=== PATIENT | female | born 1985 | race Caucasian/White ===

== ENCOUNTER 2020-05-17 11:11 | Inpatient (IN) | payer MEDICAID ==
[~2020-05-17] VITALS: Ht 172.7 cm; Wt 74.1 kg
[2020-05-17] MEDS ORDERED: SODIUM CHLORIDE 0.9% 1,000 ML IV ONE (12:15)
[2020-05-17] MEDS ORDERED: PROMETHAZINE HCL 25 MG/ML 1ML IV ONE (12:15)
[2020-05-17 12:27] LABS: Basophils # (auto) 0 10 ^3/uL (0-0.2); Basophils % (auto) 0.1 % (0.0-2.0); Eosinophils # (auto) 0 10 ^3/uL (0-0.8); Hematocrit 39.1 % (36.0-46.0); Hemoglobin 13.3 g/dL (12.2-16.2); Lymphocytes % (auto) 18.2 % (10.0-50.0); Mean Corpuscular Hemoglobin 30.3 pg (28.0-32.0); Mean Corpuscular Volume 89.1 fL (80.0-100.0); Monocytes # (auto) 0.6 10 ^3/uL (0-1.3); Monocytes % (auto) 5.8 % (0.0-12.0); Neutrophils # (auto) 8.2 10 ^3/uL (1.6-8.6); Neutrophils % (auto) 75.9 % (37.0-80.0); Nucleated Red Blood Cells % 0.1 %; Platelet Count (auto) 290 10^3/uL (140-450); Red Blood Cells 4.39 10^6/uL (4.0-5.20); Red Cell Distribution Width 14.1 % (11.8-14.3); White Blood Cell 10.8 10^3/uL (4.4-10.8)
[2020-05-17 12:45] LABS: Calcium 10.2 mg/dL (8.5-10.1); Potassium 3.3 mmol/L (3.5-5.1)
[2020-05-17 12:48] LABS: Albumin 4.1 g/dL (3.4-5.0); BUN/Creatinine Ratio 18.6
[2020-05-17 12:53] LABS: Bilirubin, Total 0.8 mg/dL (0.2-1.0); Total Protein 8.7 g/dL (6.4-8.2)
[2020-05-17] MEDS ORDERED: KETOROLAC TROMETH 30 MG/ML 1ML VIAL IV ONE (14:30)
[2020-05-17] MEDS: PANTOPRAZOLE 40 MG/10 ML VIAL INJ IV SCH (15:20)
[2020-05-17] MEDS: SODIUM CHLORIDE 0.9% 1,000 ML IV SCH ×2 (15:20→21:29)
[2020-05-17] MEDS: cefTRIAXone 1GM/50ML D5W 50 ML IV SCH (15:21)
[2020-05-17] MEDS: ONDANSETRON HCL 4 MG/2 ML VIAL IV PRN ×2 (15:50→23:14)
[2020-05-17] MEDS: metroNIDAZOLE 500MG/100ML 100 ML IV SCH ×2 (15:51→22:59)
[2020-05-17 19:44] LABS: Urine Bacteria FEW /hpf (None Seen); Urine Blood Negative /uL (Negative); Urine Mucus FEW (None Seen); Urine Specific Gravity 1.025 (1.001-1.035); Urine WBC 4 /hpf (0 - 5)
[2020-05-17 21:30] VITALS: BP 114/71
[2020-05-17 22:20] VITALS: BP 114/71
[2020-05-17] MEDS: MORPHINE SULF INJ 2 MG/ML SYRINGE 1ML IV PRN (23:14)
[2020-05-18] MEDS ORDERED: GABA100C9 PO (01:16)
[2020-05-18] MEDS ORDERED: CYCL7.5T45 PO (01:16)
[2020-05-18] MEDS: SODIUM CHLORIDE 0.9% 1,000 ML IV SCH ×3 (03:21→17:25)
[2020-05-18 05:12] VITALS: BP 133/86
[2020-05-18 06:38] LABS: Potassium 3.3 mmol/L (3.5-5.1)
[2020-05-18 06:43] LABS: BUN/Creatinine Ratio 23.4
[2020-05-18] MEDS: metroNIDAZOLE 500MG/100ML 100 ML IV SCH ×3 (06:46→22:57)
[2020-05-18] MEDS: ONDANSETRON HCL 4 MG/2 ML VIAL IV PRN (06:58)
[2020-05-18] MEDS: PANTOPRAZOLE 40 MG/10 ML VIAL INJ IV SCH (07:31)
[2020-05-18 08:34] VITALS: BP 117/79
[2020-05-18] MEDS: cefTRIAXone 1GM/50ML D5W 50 ML IV SCH (09:16)
[2020-05-18 12:30] LABS: Amphetamine Screen, Urine NEGATIVE (NEGATIVE); Barbiturate Scree,Urine NEGATIVE (NEGATIVE); Benzodiazephine Screen, Urine NEGATIVE (NEGATIVE); Cannabinoid Screen, Urine POSITIVE (NEGATIVE); Cocaine Screen, Urine NEGATIVE (NEGATIVE); Opiate Scree,Urine NEGATIVE (NEGATIVE); Phencyclidine Screen, Urine NEGATIVE (NEGATIVE)
[2020-05-18 12:44] VITALS: BP 125/72
[2020-05-18] MEDS ORDERED: DEXTROSE (50%) 50ML SYRG IV PRN (14:30)
[2020-05-18] MEDS: ACCU-CHEK COMFORT CURVE STRIP VI SCH ×2 (16:54→22:00)
[2020-05-18] MEDS: InsuLIN REG 1unit/0.01ml Soln (100units/ml) SC SCH ×2 (16:55→22:00)
[2020-05-18 16:58] VITALS: BP 127/82
[2020-05-18 22:00] VITALS: BP 147/83
[2020-05-19] MEDS: SODIUM CHLORIDE 0.9% 1,000 ML IV SCH ×3 (01:38→13:25)
[2020-05-19] MEDS: ONDANSETRON HCL 4 MG/2 ML VIAL IV PRN (01:39)
[2020-05-19] MEDS: MORPHINE SULF INJ 2 MG/ML SYRINGE 1ML IV PRN (01:39)
[2020-05-19 05:00] VITALS: BP 122/77
[2020-05-19] MEDS: InsuLIN REG 1unit/0.01ml Soln (100units/ml) SC SCH ×2 (06:48→11:14)
[2020-05-19] MEDS: metroNIDAZOLE 500MG/100ML 100 ML IV SCH ×2 (06:49→15:05)
[2020-05-19] MEDS: ACCU-CHEK COMFORT CURVE STRIP VI SCH ×2 (06:49→11:13)
[2020-05-19 08:41] VITALS: BP 126/73
[2020-05-19] MEDS: cefTRIAXone 1GM/50ML D5W 50 ML IV SCH (08:45)
[2020-05-19] MEDS: PANTOPRAZOLE 40 MG/10 ML VIAL INJ IV SCH (11:13)
[2020-05-19 12:48] VITALS: BP 129/85
[2020-05-19 13:23] VITALS: BP 129/85
== END 2020-05-19 14:50 | disposition home or self-care (01) | DRG 249 ==
LOC: ER 11:11 → OVERFLOW 14:44 → EAST 20:51
PROVIDERS: ADMIT Nurse Practitioner Acute Care; ATTEND Family Medicine
DX: K52.9 Noninfective gastroenteritis and colitis, unspecified (principal); N17.0 Acute kidney failure with tubular necrosis; E11.65 Type 2 diabetes mellitus with hyperglycemia; N20.0 Calculus of kidney; E86.0 Dehydration; F12.90 Cannabis use, unspecified, uncomplicated; F17.210 Nicotine dependence, cigarettes, uncomplicated; N39.0 Urinary tract infection, site not specified; Z20.822 Contact with and (suspected) exposure to COVID-19; Z80.9 Family history of malignant neoplasm, unspecified; Z82.49 Family history of ischemic heart disease and other diseases of the circulatory system; Z88.8 Allergy status to other drugs, medicaments and biological substances
CPT/HCPCS: 36415; 74176; 80048; 80053; 80307; 81001; 81025; 82962; 83036; 83690; 83735; 84702; 85025; 87426; 96361; 96365; 96375; C9113; G0378; J0696; J1885; J2405; J3490

== ENCOUNTER 2020-07-29 20:49 | Emergency (ER) | payer MEDICAID ==
[~2020-07-29] VITALS: Ht 172.7 cm; Wt 59.0 kg
[~2020-07-29 20:49] MED LIST: CYCL7.5T45 PO; GABA100C9 PO
[2020-07-29 22:09] LABS: Basophils # (auto) 0 10 ^3/uL (0-0.2); Basophils % (auto) 0.6 % (0.0-2.0); Eosinophils # (auto) 0.2 10 ^3/uL (0-0.8); Eosinophils % (auto) 2.4 % (0.0-7.0); Hematocrit 37.2 % (36.0-46.0); Hemoglobin 12.7 g/dL (12.2-16.2); Lymphocytes # (auto) 2.3 10 ^3/uL (0.4-5.4); Lymphocytes % (auto) 33.9 % (10.0-50.0); Mean Corpuscular Hemoglobin 30.8 pg (28.0-32.0); Mean Corpuscular Hgb Conc. 34.2 g/dL (32.0-36.0); Mean Corpuscular Volume 90.2 fL (80.0-100.0); Monocytes # (auto) 0.5 10 ^3/uL (0-1.3); Monocytes % (auto) 7.7 % (0.0-12.0); Neutrophils # (auto) 3.7 10 ^3/uL (1.6-8.6); Neutrophils % (auto) 55.4 % (37.0-80.0); Platelet Count (auto) 241 10^3/uL (140-450); Red Blood Cells 4.12 10^6/uL (4.0-5.20); Red Cell Distribution Width 14.6 % (11.8-14.3); White Blood Cell 6.7 10^3/uL (4.4-10.8)
[2020-07-29 22:24] LABS: Partial Thromboplastin Time 25.8 sec (23.0-31.2)
[2020-07-29 22:27] LABS: Albumin 3.6 g/dL (3.4-5.0)
[2020-07-29 22:30] LABS: BUN/Creatinine Ratio 10.7; Bilirubin, Total 0.3 mg/dL (0.2-1.0); Total Protein 7.9 g/dL (6.4-8.2)
[2020-07-29] MEDS ORDERED: POTASSIUM EFFERVESENT TAB 25 MEQ PO ONE (23:15)
[2020-07-30 01:09] VITALS: BP 129/84
== END 2020-07-30 01:36 | disposition left against medical advice (07) ==
LOC: ER 20:54
DX: O99.281 Endocrine, nutritional and metabolic diseases complicating pregnancy, first trimester (principal); E87.6 Hypokalemia; N92.6 Irregular menstruation, unspecified; O46.91 Antepartum hemorrhage, unspecified, first trimester; O99.331 Smoking (tobacco) complicating pregnancy, first trimester; Z3A.01 Less than 8 weeks gestation of pregnancy; Z79.899 Other long term (current) drug therapy; Z88.8 Allergy status to other drugs, medicaments and biological substances
CPT/HCPCS: 36415; 80053; 84702; 85025; 85610; 85730

== ENCOUNTER 2021-02-28 16:04 | Emergency (ER) | payer MEDICAID ==
[~2021-02-28] VITALS: Ht 172.7 cm; Wt 49.7 kg
[~2021-02-28 16:04] MED LIST changes: +CYCL-838 PO; -CYCL7.5T45 PO
[2021-02-28 16:49] LABS: Basophils # (auto) 0 10 ^3/uL (0-0.2); Basophils % (auto) 0.2 % (0.0-2.0); Eosinophils # (auto) 0 10 ^3/uL (0-0.8); Eosinophils % (auto) 0.1 % (0.0-7.0); Hematocrit 38.8 % (36.0-46.0); Hemoglobin 12.5 g/dL (12.2-16.2); Lymphocytes # (auto) 1.7 10 ^3/uL (0.4-5.4); Lymphocytes % (auto) 17.1 % (10.0-50.0); Mean Corpuscular Hemoglobin 27.2 pg (28.0-32.0); Mean Corpuscular Hgb Conc. 32.2 g/dL (32.0-36.0); Mean Corpuscular Volume 84.4 fL (80.0-100.0); Monocytes # (auto) 0.6 10 ^3/uL (0-1.3); Monocytes % (auto) 6.1 % (0.0-12.0); Neutrophils # (auto) 7.4 10 ^3/uL (1.6-8.6); Neutrophils % (auto) 76.5 % (37.0-80.0); Nucleated Red Blood Cells % 0.1 %; Red Cell Distribution Width 14.5 % (11.8-14.3); White Blood Cell 9.7 10^3/uL (4.4-10.8)
[2021-02-28 17:06] LABS: Potassium 3.5 mmol/L (3.5-5.1)
[2021-02-28 17:16] LABS: BUN/Creatinine Ratio 22.9; Bilirubin, Total 0.3 mg/dL (0.2-1.0); Total Protein 9.5 g/dL (6.4-8.2)
[2021-02-28] MEDS ORDERED: FAMOTIDINE (10MG/ML) 2ML VL IV ONE (19:15)
[2021-02-28] MEDS ORDERED: SODIUM CHLORIDE 0.9% 1,000 ML IV ONE (19:15)
[2021-02-28] MEDS ORDERED: ONDANSETRON HCL 4 MG/2 ML VIAL IV ONE (19:15)
[2021-02-28] MEDS ORDERED: ALUM & MAG HYDROX-SIMETH LIQ(MAALOX) 30 ML PO ONE (19:15)
[2021-02-28 21:35] VITALS: BP 139/78
[2021-02-28 22:11] LABS: Urine Bacteria NONE SEEN /hpf (None Seen); Urine Blood Negative /uL (Negative); Urine Mucus FEW (None Seen); Urine Specific Gravity 1.025 (1.001-1.035); Urine WBC 4 /hpf (0 - 5)
[2021-02-28] MEDS ORDERED: CEPH-509 PO (22:52)
[2021-02-28] MEDS ORDERED: FAMO20TA10 PO (22:52)
== END 2021-02-28 23:19 | disposition home or self-care (01) ==
LOC: ER 16:04
DX: N39.0 Urinary tract infection, site not specified (principal); R11.2 Nausea with vomiting, unspecified; E11.9 Type 2 diabetes mellitus without complications; K21.9 Gastro-esophageal reflux disease without esophagitis; F17.210 Nicotine dependence, cigarettes, uncomplicated; Z79.899 Other long term (current) drug therapy; Z88.8 Allergy status to other drugs, medicaments and biological substances
CPT/HCPCS: 36415; 80053; 81001; 81025; 83605; 83690; 85025; 87086; 96361; 96374; 96375; 99284; J2405; J3490; J7030